=== PATIENT | male | born 1950 | race Caucasian/White ===

== ENCOUNTER → 2018-04-06 | Outpatient (CLI) | payer BC | END | disposition home or self-care (01) | LOC: LABWHC1 09:29 | PROVIDERS: ATTEND Nurse Practitioner Family | DX: R97.20 Elevated prostate specific antigen [PSA] (principal) | CPT/HCPCS: 36415; 84153 ==

== ENCOUNTER 2018-08-01 12:25 | Emergency (ER) | payer BC ==
[2018-08-01] MEDS ORDERED: KETOROLAC 30 MG/ML 1 ML VIAL IVP STA (12:52)
[2018-08-01] MEDS ORDERED: ONDANSETRON 4 MG/2 ML VIAL IVP STA (12:52)
[2018-08-01] MEDS ORDERED: SODIUM CHLORIDE 0.9% 1,000 ML IV STA (12:52)
[2018-08-01] MEDS ORDERED: SODIUM CHLORIDE 0.9% 500 ML 500 ML IV STA (12:52)
[2018-08-01 13:33] LABS: Basophils % (A) 0 %; Eosinophils # (A) 0.1 k/uL (0-0.7); Eosinophils % (A) 1 %; HCT 45.8 % (39.0-53.0); HGB 15.8 gm/dL (13.0-17.5); Lymphocytes # (A) 1.9 k/uL (1.0-4.8); Lymphocytes % (A) 20 %; MCH 30.6 pg (25.0-35.0); MCHC 34.6 g/dL (31.0-37.0); MCV 88.5 fL (80.0-100.0); Mean Platelet Volume 7.2; Monocytes # (A) 0.7 k/uL (0-1.0); Monocytes % (A) 8 %; Neutrophils # (A) 6.9 k/uL (1.3-7.7); Neutrophils % (A) 70 %; Platelet Count 237 k/uL (150-450); RBC 5.17 m/uL (4.30-5.90); RDW 14.2 % (11.5-15.5); WBC 9.8 k/uL (3.8-10.6)
[2018-08-01 13:35] LABS: Albumin 4.5 g/dL (3.5-5.0); Calcium 9.7 mg/dL (8.4-10.2); Potassium 4.1 mmol/L (3.5-5.1); Total Bilirubin 0.7 mg/dL (0.2-1.3); Total Protein 7.3 g/dL (6.3-8.2)
--- NOTE | 2018-08-01 13:48 | XR ---
EXAMINATION TYPE: XR KUB DATE OF EXAM: 08/01/2018 COMPARISON: 08/28/2012 HISTORY: Right flank pain TECHNIQUE: One view abdominal series FINDINGS: The osseous structures are intact. The bowel gas pattern is nonspecific. Hypertrophic and degenerati ve changes spine. Arthropathy of the hips. Chronic deformity of the left iliac bone. Arthropathy of t he hips with hypertrophic change of the acetabulum can be associated with femoral acetabular impingem ent. IMPRESSION: 1. Nonspecific abdomen. No definitive renal calculi, however, the right upper quadrant is limited by overlying bowel content.
--- NOTE | 2018-08-01 14:11 | ED ---
Abdominal Pain HPI - General Chief Complaint: Abdominal Pain Stated Complaint: Kidney stone Time Seen by Provider: 08/01/18 12:46 Source: patient, RN notes reviewed Mode of arrival: ambulatory Limitations: no limitations - History of Present Illness Initial Comments: 67-year-old male presents emergency Department with chief complaint of flank pain. Patient states this started earlier this morning and has worsened. Patient does have a long history kidney stones and states it feels exactly the same. He has admitted nausea vomiting denies chest pain shortness breath no diarrhea no constipation. Patient has urinary frequency and dark urine. Patie nt states she's had lithotripsy in the past. Patient states the pain is not improved by anything or worsened by anything at this time. - Related Data Previous Rx's Medication Instructions Recorded Ketorolac [Toradol] 10 mg PO Q8HR #15 tab 08/01/18 Ondansetron Odt [Zofran Odt] 4 mg PO Q8HR PRN #10 tab 08/01/18 Tamsulosin [Flomax] 0.4 mg PO DAILY #7 cap 08/01/18 Allergies Allergy/AdvReac Type Severity Reaction Status Date / Time No Known Allergies Allergy Verified 08/01/18 12:44 Review of Systems ROS Statement: Those systems with pertinent positive or pertinent negative responses have been documented in the HPI. ROS Other: All systems not noted in ROS Statement are negative. Past Medical History Past Medical History: Hypertension Additional Past Medical History / Comment(s): kidney stones History of Any Multi-Drug Resistant Organisms: None Reported Past Surgical History: Orthopedic Surgery Additional Past Surgical History / Comment(s): lithotripsy Past Psychological History: No Psychological Hx Reported Smoking Status: Never smoker Past Alcohol Use History: None Reported Past Drug Use History: None Reported General Exam Limitations: no limitations General appearance: alert, in no apparent distress Head exam: Present: atraumatic, normocephalic, normal inspection Eye exam: Present: normal appearance, PERRL, EOMI. Absent: scleral icterus, conjunctival injection, periorbital swelling ENT exam: Present: normal exam, normal oropharynx, mucous membranes moist Neck exam: Present: normal inspection. Absent: tenderness, meningismus, lymphadenopathy Respiratory exam: Present: normal lung sounds bilaterally. Absent: respiratory distress, wheezes, rales, rhonchi, stridor Cardiovascular Exam: Present: regular rate, normal rhythm, normal heart sounds. Absent: systolic murmur, diastolic murmur, rubs, gallop, clicks GI/Abdominal exam: Present: soft, tenderness (Mild left-sided), normal bowel sounds. Absent: distended, guarding, rebound, rigid Back exam: Present: CVA tenderness (L). Absent: CVA tenderness (R) Neurological exam: Present: alert, oriented X3, CN II-XII intact Skin exam: Present: warm, dry, intact, normal color. Absent: rash Course Vital Signs 08/01/18 12:41 Temperature 98.5 F Pulse Rate 88 Respiratory 18 Rate Blood Pressure 149/84 O2 Sat by Pulse 99 Oximetry Medical Decision Making - Medical Decision Making 67 show male presented for left flank pain history kidney stones. Symptoms are consistent with it. Labs are unremarkable KUB shows no acute abnormality. Patient be discharged. Return parameters were discussed - Lab Data Result diagrams: 08/01/18 13:06 08/01/18 13:06 Lab Results 08/01/18 08/01/18 08/01/18 Range/Units 13:06 13:06 13:45 WBC 9.8 (3.8-10.6) k/uL RBC 5.17 (4.30-5.90) m/uL Hgb 15.8 (13.0-17.5) gm/dL Hct 45.8 (39.0-53.0) % MCV 88.5 (80.0-100.0) fL MCH 30.6 (25.0-35.0) pg MCHC 34.6 (31.0-37.0) g/dL RDW 14.2 (11.5-15.5) % Plt Count 237 (150-450) k/uL Neutrophils % 70 % Lymphocytes % 20 % Monocytes % 8 % Eosinophils % 1 % Basophils % 0 % Neutrophils # 6.9 (1.3-7.7) k/uL Lymphocytes # 1.9 (1.0-4.8) k/uL Monocytes # 0.7 (0-1.0) k/uL Eosinophils # 0.1 (0-0.7) k/uL Basophils # 0.0 (0-0.2) k/uL Sodium 140 (137-145) mmol/L Potassium 4.1 (3.5-5.1) mmol/L Chloride 106 (98-107) mmol/L Carbon Dioxide 23 (22-30) mmol/L Anion Gap 11 mmol/L BUN 19 (9-20) mg/dL Creatinine 1.08 (0.66-1.25) mg/dL Est GFR (CKD-EPI)AfAm 82 (>60 ml/min/1.73 sqM) Est GFR (CKD-EPI)NonAf 71 (>60 ml/min/1.73 sqM) Glucose 104 H (74-99) mg/dL Calcium 9.7 (8.4-10.2) mg/dL Total Bilirubin 0.7 (0.2-1.3) mg/dL AST 32 (17-59) U/L ALT 29 (21-72) U/L Alkaline Phosphatase 90 (38-126) U/L Total Protein 7.3 (6.3-8.2) g/dL Albumin 4.5 (3.5-5.0) g/dL Lipase 136 (23-300) U/L Urine Color Yellow Urine Appearance Clear (Clear) Urine pH 8.5 H (5.0-8.0) Ur Specific [place] 1.019 (1.001-1.035) Urine Protein 1+ H (Negative) Urine Glucose (UA) Negative (Negative) Urine Ketones 1+ H (Negative) Urine Blood Negative (Negative) Urine Nitrite Negative (Negative) Urine Bilirubin Negative (Negative) Urine Urobilinogen <2.0 (<2.0) mg/dL Ur Leukocyte Esterase Negative (Negative) Urine WBC 4 (0-5) /hpf Calcium Oxalate Crystal Rare H (None) /hpf Urine Mucus Rare H (None) /hpf Disposition Clinical Impression: Kidney stone Disposition: HOME SELF-CARE Condition: Stable Instructions (If sedation given, give patient instructions): Kidney Stones (ED) Additional Instructions: Please return to the Emergency Department if symptoms worsen or any other conc erns. Prescriptions: Tamsulosin [Flomax] 0.4 mg PO DAILY #7 cap Ketorolac [Toradol] 10 mg PO Q8HR #15 tab Ondansetron Odt [Zofran Odt] 4 mg PO Q8HR PRN #10 tab PRN Reason: Nausea Is patient prescribed a controlled substance at d/c from ED?: No Referrals: Kraig Abad DO [Primary Care Provider] - 1-2 days Richard Arriaga MD [STAFF PHYSICIAN] - 1-2 days Time of Disposition: 14:47
[2018-08-01 14:14] LABS: Appearance,Urine Clear (Clear); Bilirubin,Urine Negative (Negative); Blood,Urine Negative (Negative); Calcium Oxalate Crystals,Urine Rare /hpf; Color,Urine Yellow; Glucose,Urine (UA) Negative (Negative); Ketones,Urine 1+ (Negative); Leukocyte Esterase,Urine Negative (Negative); Mucus,Urine Rare /hpf; Nitrite,Urine Negative (Negative); PH, Urine 8.5 (5.0-8.0); Protein,Urine 1+ (Negative); Specific Gravity,Urine 1.019 (1.001-1.035); Urobilinogen,Urine <2.0 mg/dL (<2.0); WBC,Urine 4 /hpf (0-5)
[2018-08-01] MEDS ORDERED: HYDROcodone/APAP 5-325MG 1 EACH TAB PO STA (14:47)
[2018-08-01] MEDS ORDERED: ACET/COD 300 MG/30 MG STARTER PACK 6 TAB BTL PO STA (14:47)
[2018-08-01 15:10] VITALS: BP 138/70; PULSE 78; RESP 16; TEMP 98
== END 2018-08-01 15:09 | disposition home or self-care (01) ==
LOC: EC 12:25
DX: N20.0 Calculus of kidney (principal)
CPT/HCPCS: 36415; 80053; 83690; 85025; 81001; 74018; 99284; 96374; 96375; 96361 ×2; J2405; J1885

== ENCOUNTER → 2018-08-12 | Outpatient (CLI) | payer BC ==
--- NOTE | 2018-08-12 11:20 | CT ---
EXAMINATION TYPE: CT abdomen pelvis wo con DATE OF EXAM: 08/12/2018 HISTORY: Right sided pain for [address] DLP: 1030 mGycm. Automated Exposure Control for Dose Reduction was Utilized. TECHNIQUE: CT scan of the abdomen and pelvis is performed without oral or IV contrast. COMPARISON: CT abdomen and pelvis August 28, 2012 FINDINGS: Within the limitations of a non-contrast study, the following observations are made. LUNG BASES: There are scattered small nodules in the right lung base redemonstrated without significa nt interval change. Slightly elevated right hemidiaphragm remains present LIVER/GB: There are few small scattered simple-appearing thin-walled cysts throughout the liver redem onstrated. PANCREAS: No significant abnormality is seen. SPLEEN: No significant abnormality is seen. ADRENALS: Slight low dense thickening to left adrenal gland is stable favoring benign lipid rich hype rplasia. KIDNEYS: Left kidney shows 2-3 scattered small calculi measuring up to 3 mm in size axial image 71. N o hydronephrosis or obstructing ureter calculi clearly seen. Right kidney shows 2 calculi lower pole level coronal image 62 measuring up to 5 mm in size. There is simple appearing exophytic 6 cm cyst la terally mid to lower pole level coronal image 62 redemonstrated. There is new mild to moderate hydron ephrosis and proximal hydroureter secondary to obstructing 7 mm calculus proximal right ureter mayes l image 53 and axial image 79. Ureter is not dilated distal to this. No intraluminal calculi are seen in bladder. BOWEL: Some diverticula are scattered throughout the colon most prominent in the sigmoid colon. No CT evidence for acute diverticulitis. CT is in the anterior midline of the upper pelvis slightly wander ing and fecal filled axial image 112 terminal ileum is seen cranial aspect coronal image 39. Appendix felt within normal limits axial image 99 and is air-filled. GENITAL ORGANS: Prostate gland is heterogeneous and enlarged in size consistent with BPH. Seminal ves icles are slightly bulky. Pelvic phleboliths are noted bilaterally LYMPH NODES: No greater than 1cm abdominal or pelvic lymph nodes are appreciated. OSSEOUS STRUCTURES: Moderate multilevel spurring in the lower thoracic spine right aspect. Mild to mo derate disc space narrowing with vacuum disc phenomenon L4-L5 level. Mild to moderate disc space narr owing with moderate anterior spurring L2-L3 level. OTHER: No significant additional abnormality is seen. IMPRESSION: Bilateral nephrolithiasis with obstructing 7 mm calculus proximal right ureter causing mi [id number] right-sided hydronephrosis. A Yellow level critical message alert has been initiated for Fernando Lowe MD via the [employer] Critical Results System on 08/12/2018 11:17 AM. This message alert has been sent to Fernando Lowe MD via the preferences provided by the clinician for the receipt of Radiology Critical Findings. Mess age ID [id number].
== END | disposition home or self-care (01) ==
LOC: RADCTMAIN 10:43
PROVIDERS: ATTEND Urology
DX: N13.2 Hydronephrosis with renal and ureteral calculous obstruction (principal)
CPT/HCPCS: 74176

== ENCOUNTER → 2018-08-14 | Outpatient (CLI) | payer BC ==
[2018-08-14 14:12] LABS: Basophils % (A) 1 %; Eosinophils # (A) 0.1 k/uL (0-0.7); Eosinophils % (A) 2 %; HCT 40.6 % (39.0-53.0); HGB 13.2 gm/dL (13.0-17.5); Lymphocytes # (A) 1.5 k/uL (1.0-4.8); Lymphocytes % (A) 27 %; MCH 30.3 pg (25.0-35.0); MCHC 32.5 g/dL (31.0-37.0); MCV 93.1 fL (80.0-100.0); Mean Platelet Volume 6.8; Monocytes # (A) 0.3 k/uL (0-1.0); Monocytes % (A) 6 %; Neutrophils # (A) 3.5 k/uL (1.3-7.7); Neutrophils % (A) 63 %; Platelet Count 253 k/uL (150-450); RBC 4.36 m/uL (4.30-5.90); RDW 13.9 % (11.5-15.5); WBC 5.5 k/uL (3.8-10.6)
[2018-08-14 14:39] LABS: Calcium 9.2 mg/dL (8.4-10.2); Potassium 4.1 mmol/L (3.5-5.1)
== END | disposition home or self-care (01) ==
LOC: LABPAT 13:38
PROVIDERS: ATTEND Urology
DX: Z01.812 Encounter for preprocedural laboratory examination (principal); Z01.818 Encounter for other preprocedural examination; I10 Essential (primary) hypertension; N20.1 Calculus of ureter; N20.0 Calculus of kidney
CPT/HCPCS: 36415; 80048; 85025

== ENCOUNTER 2018-08-22 06:04 | Day surgery (SDC) | payer BC ==
--- NOTE | 2018-08-14 18:14 | P.GSHP ---
History of Present Illness H&P Date: 08/14/18 Chief Complaint: Right flank pain The patient is a 67-year-old white male with a history of recurrent calcium oxalate urolithiasis. He has previously undergone ESWL. He underwent a recent 24-hour urine study to determine the cause of his recurrent urolithiasis. He has recently experienced right flank pain, and a computed tomography scan shows an 8 mm right proximal ureteral calculus as well as bilateral renal calculi. Alternative treatment options have been reviewed. The calculi were not seen on a plain radiograph. He has elected to undergo ureteroscopy with laser lithotripsy and comes for this reason. - Constitutional Constitutional: Reports chills - Gastrointestinal Gastrointestinal: Reports nausea - Genitourinary (Female) Genitourinary: Reports flank pain, Reports hematuria, Reports kidney stones Past Medical History Past Medical History: Hypertension Additional Past Medical History / Comment(s): kidney stones History of Any Multi-Drug Resistant Organisms: None Reported Past Surgical History: Orthopedic Surgery Additional Past Surgical History / Comment(s): lithotripsy Past Psychological History: No Psychological Hx Reported Smoking Status: Never smoker Past Alcohol Use History: None Reported Past Drug Use History: None Reported Medications and Allergies Home Medications Medication Instructions Recorded Confirmed Type Ketorolac [Toradol] 10 mg PO Q8HR #15 tab 08/01/18 Rx Ondansetron Odt [Zofran Odt] 4 mg PO Q8HR PRN #10 tab 08/01/18 Rx Tamsulosin [Flomax] 0.4 mg PO DAILY #7 cap 08/01/18 Rx Allergies Allergy/AdvReac Type Severity Reaction Status Date / Time No Known Allergies Allergy Verified 08/01/18 12:44 Surgical - Exam - General well developed, well nourished, no distress - Neck no masses, trachea midline - Respiratory normal respiratory effort, clear to auscultation - Cardiovascular Rhythm: regular Abnormal Heart Sounds: no systolic murmur, no diastolic murmur, no rub, no S3 Gallop, no S4 Gallop, no click, no other - Abdomen Abdomen: soft, non tender, no guarding, no rigid, no rebound - Psychiatric oriented to time, oriented to person, oriented to place, speech is normal, memory intact Assessment and Plan (1) Calculus of ureter Status: Acute Code(s): N20.1 - CALCULUS OF URETER SNOMED Code(s): 35146761 (2) Calculus of kidney Status: Acute Code(s): N20.0 - CALCULUS OF KIDNEY SNOMED Code(s): 21312967 Plan: Cystoscopy, right retrograde pyelogram, right ureteroscopy with Holmium laser lithotripsy, right ureteral stent insertion. The procedure has been reviewed in detail with the patient. Potential risks include anesthesia, bleeding, infection, and ureteral injury. The patient is aware of the possible need for a secondary procedure.
[2018-08-19 10:33] VITALS: BMI 27.7
[~2018-08-22 06:04] MED LIST: LIDOCAINE 1% 20 ML VIAL (10MG/ML) FOR IV START INTRADERMA PRN; METOCLOPRAMIDE 5 MG/ML 2 ML VIAL IVP PRN; ONDANSETRON 4 MG/2 ML VIAL IVP PRN; ceFAZolin IN SWFI 2 GM/20 ML SYRINGE IVP ONE
[2018-08-22] MEDS: LACTATED RINGERS 1,000 ML IV SCH ×2 (06:40→11:07)
--- NOTE | 2018-08-22 07:18 | XR ---
EXAMINATION TYPE: XR KUB DATE OF EXAM: 08/22/2018 6:22 AM CLINICAL HISTORY: Right-sided nephrolithiasis TECHNIQUE: Single supine KUB image of the abdomen is obtained. COMPARISON: CT dated 08/12/2018. FINDINGS: There is a 7 mm right renal calculus within lower pole and punctate 2 mm calculus. These we re both seen on the prior CT of 08/12/2018. The right ureteral calculus previously overlying the L3 tr ansverse processes unchanged. The known left renal calculi are punctate and better defined on CT. No dilated bowel. Degenerative changes of the hips and lumbar spine are moderate. Lung bases are subopti augusta visualized but clear. IMPRESSION: Right ureteral calculus remains unchanged in position overlying the right L3 transverse process in co mparison to the CT dated 08/12/2018. Other bilateral renal calculi are better seen on CT.
[2018-08-22] MEDS ORDERED: fentaNYL (PF) 50 MCG/ML 2 ML AMP ONE (07:24)
[2018-08-22] MEDS ORDERED: PROPOFOL 10 MG/ML 20 ML VIAL IV ONE (07:24)
[2018-08-22] MEDS ORDERED: LIDOCAINE 1% INJ 10MG/ML (20 ML MDV) ONE (07:24)
[2018-08-22] MEDS ORDERED: MIDAZOLAM 2 MG/2 ML VIAL ONE (07:24)
[2018-08-22] MEDS ORDERED: PHENYLEPHRINE-0.9% NACL SYG 1 MG/10 ML SYRINGE ONE (07:24)
[2018-08-22] MEDS ORDERED: LACTATED RINGERS 1,000 ML IV ONE (08:12)
[2018-08-22 09:12] VITALS: TEMP 97
[2018-08-22 09:32] VITALS: RESP 16
--- NOTE | 2018-08-22 09:41 | P.OP ---
Date of Procedure: 08/22/18 Preoperative Diagnosis: Right ureteral calculus, right renal calculi Postoperative Diagnosis: Same Procedure(s) Performed: Cystoscopy, right ureteroscopy with Holmium laser lithotripsy, right ureteral stent insertion Anesthesia: LIANE Surgeon: Fernando Lowe Estimated Blood Loss (ml): 5 IV fluids (ml): 900 Pathology: none sent Condition: stable Disposition: PACU Indications for Procedure: The patient is a 67-year-old white male with a history of recurrent calcium oxalate urolithiasis. He has previously undergone ESWL. He underwent a recent 24-hour urine study to determine the cause of his recurrent urolithiasis. He has recently experienced right flank pain, and a computed tomography scan shows an 8 mm right proximal ureteral calculus as well as bilateral renal calculi. Alternative treatment options have been reviewed. The calculi were not seen on a plain radiograph. He has elected to undergo ureteroscopy with laser lithotripsy and comes for this reason. Operative Findings: Right proximal ureteral calculus and several right renal calculi, all fragmented completely. Description of Procedure: The patient was taken to the operating room and placed in the dorsolithotomy position, with legs supported in Villa stirrups. The external genitalia was prepped and draped sterilely. The 30 lens was used to introduce the 19-Danish Stortz cystoscopic sheath through the urethra and into the bladder under direct vision. The prostatic urethra showed evidence of mild lateral lobe enlargement. The bladder was examined in its entirety. Both ureteral orifices were normal anatomic location and configuration, and clear urine effluxed from both. No tumors or foreign bodies were seen. A 0.038 inch Glidewire was passed through the cystoscope. The right ureteral orifice was cannulated, and the Glidewire was advanced up to the right renal pelvis. The cystoscope was removed, and an 11/13-Danish ureteral access catheter was passed over the wire, up to the proximal ureter. The mini flexible ureteroscope was passed through the ureteral access catheter sheath, then advanced under direct vision up to the calculus. The 200 micron Holmium laser probe was passed through the ureteroscope, and lithotripsy was performed. The calculus was not very dense, likely composed of calcium oxalate dihydrate. After fragmenting the ureteral calculus, the ureteroscope was advanced up to the kidney. Cloudy urine was aspirated to improve visualization. Small calculi were seen within upper pole and midpole calyces, and these were fragmented. The larger calculus was identified within a lower pole calyx, and this also was fragmented. Fragmentation was continued until there were no residual calculus fragments exceeding 1-2 mm in size. The ureteroscope was removed under direct vision. There was no evidence of ureteral trauma. The Glidewire was passed through the ureteral access catheter sheath, which was then removed. The Glidewire was backloaded into the cystoscope, which was advanced into the bladder. A 28 cm, 4.8-Danish double-J ureteral stent was placed over the wire. Proper stent positioning was verified fluoroscopically and endoscopically. The bladder was emptied and the cystoscope removed. The patient tolerated the procedure well and was taken to the recovery room in stable condition. [facility] Report: Procedure Acuity: Elective Stone Size and Location: 8 mm, right proximal ureter Ureteral Dilation: No Ureteral Access Sheath Used: Yes Stone Sent for Analysis: No All Stones/Fragments Were Removed with a Basket: No Complications: No Preoperative Antibiotics Given: Yes Stent Placed: Yes If Stent Placed, Was String Left Attached: No If Stent Placed, When is it to be Removed: 1 week Discharge Medications: [place], Detrol [place]
[2018-08-22] MEDS: HYDROmorphone 0.5 MG/0.5 ML SYRINGE IVP PRN ×2 (09:48→09:52)
[2018-08-22] MEDS ORDERED: HYDROcodone/APAP 5-325MG 1 EACH TAB PO ONE (10:19)
[2018-08-22 10:39] VITALS: PULSE 65
[2018-08-22 10:53] VITALS: BP 135/78
--- NOTE | 2018-08-22 15:46 | FL ---
Fluoroscopy HISTORY: Kidney stones, lithotripsy 37 seconds fluoroscopy time supplied to the referring clinician. 2 intraoperative C-arm images docum ent the procedure. See dictated report from urology.
== END 2018-08-22 11:17 | disposition home or self-care (01) ==
LOC: OR 06:04
PROVIDERS: ATTEND Urology
DX: N20.2 Calculus of kidney with calculus of ureter (principal); I10 Essential (primary) hypertension; Z87.442 Personal history of urinary calculi; Z79.1 Long term (current) use of non-steroidal anti-inflammatories (NSAID); Z79.899 Other long term (current) drug therapy
CPT/HCPCS: 74018; 52356; C2625; C1769 ×2; C1758; J2250; J2405; J2001; J3010; J2370; J2704; J1170; J0690

== ENCOUNTER → 2018-09-13 | Outpatient (CLI) | payer BC | LOC: LABWHC1 07:50 | PROVIDERS: ATTEND Urology | DX: R97.20 Elevated prostate specific antigen [PSA] (principal) | CPT/HCPCS: 36415; 84153 ==

== ENCOUNTER → 2018-10-08 | Outpatient (CLI) | payer BC ==
--- NOTE | 2018-10-08 11:46 | US ---
EXAMINATION TYPE: US kidneys/renal and bladder DATE OF EXAM: 10/08/2018 COMPARISON: NONE CLINICAL HISTORY: N20.1 Calculus of ureter,N20.0 Calculus or Kidney. Hx renal stones. No pain at thi s time. Stone removal x 4 weeks ago EXAM MEASUREMENTS: Right Kidney: 12.4 x 5.9 x 6.1 cm Left Kidney: 11.9 x 4.8 x 6.0 cm Right Kidney: medial lower pole exophytic cystic appearing lesion seen = 5.8 x 5.0 x 4.2 cm. Promine nt echogenic focus seen, nonshadowing = 0.4 x 0.4 cm Left Kidney: Nonshadowing echogenic focus seen in lower pole = 0.9 x 0.6 cm Bladder: Nondistended, not well visualized Bilateral Jets not seen There is no evidence for hydronephrosis at this point in time. Remainder bladder is nondistended. IMPRESSION: 1. Bilateral nonobstructive renal calculi measuring 9 mm on the left and 4 mm on the right. 2. Exophytic 5.8 cm cortical cyst on the right.
--- NOTE | 2018-10-08 15:08 | XR ---
KUB HISTORY: Kidney stones Frontal KUB correlated to prior exam 08/22/2018 The lung bases are clear. There is a scoliotic curvature to the spine, degenerative disc changes are present. No evident bowel obstruction or pneumoperitoneum. Overlying bowel gas may obscure underlying detail. Previously identified calcification overlying the right L3 transverse process is no longer s een. IMPRESSION: Nonobstructive bowel gas pattern
== END | disposition home or self-care (01) ==
LOC: RADUSWWP 10:44
PROVIDERS: ATTEND Urology
DX: N20.2 Calculus of kidney with calculus of ureter (principal); N28.1 Cyst of kidney, acquired; R14.3 Flatulence
CPT/HCPCS: 74018; 76770

== ENCOUNTER 2018-12-31 08:47 | Emergency (ER) | payer BC, MEDICARE ==
[2018-12-31 09:03] VITALS: TEMP 98.1
[2018-12-31] MEDS ORDERED: TOPICAL SKIN ADHESIVE 1 EACH AMP TOPICAL ONE (09:12)
--- NOTE | 2018-12-31 09:14 | ED ---
General Adult HPI - General Chief complaint: Wound/Laceration Stated complaint: fall/head lac Time Seen by Provider: 12/31/18 08:56 Source: patient, RN notes reviewed Mode of arrival: ambulatory Limitations: no limitations - History of Present Illness Initial comments: Patient is a pleasant 68-year-old male presenting to the emergency Department with concerns regarding head laceration. Patient states he tripped and fell. Patient did land on his head. Patient denies any loss of consciousness. Patient was not days. No nausea vomiting. No severe pain. No weakness or confusion. Last tetanus immunization was less than 10 years ago. No visual changes. Patient only has concern regarding laceration of the left forehead. No neck pain. Patient confirms he is not on blood thinners. - Related Data Home Medications Medication Instructions Recorded Confirmed Diltiazem HCl [Cartia Xt] 180 mg PO HS 08/19/18 08/22/18 amLODIPine BESYLATE [Norvasc] 5 mg PO HS 08/19/18 08/22/18 Previous Rx's Medication Instructions Recorded Hydrocodone/Acetaminophen [[place] 1 - 2 each PO Q4HR PRN #6 tab 08/22/18 5-325] Tolterodine ER [Detrol [place]] 4 mg PO DAILY #10 cap.er.24h 08/22/18 Allergies Allergy/AdvReac Type Severity Reaction Status Date / Time No Known Allergies Allergy Verified 12/31/18 09:03 Review of Systems ROS Statement: Those systems with pertinent positive or pertinent negative responses have been documented in the HPI. ROS Other: All systems not noted in ROS Statement are negative. Constitutional: Denies: fever Eyes: Denies: eye pain ENT: Denies: ear pain Respiratory: Denies: cough, dyspnea Cardiovascular: Denies: chest pain Endocrine: Denies: fatigue Gastrointestinal: Denies: abdominal pain Genitourinary: Denies: dysuria Musculoskeletal: Denies: back pain Skin: Reports: as per HPI Neurological: Denies: headache, weakness, confusion Past Medical History Past Medical History: Hypertension Additional Past Medical History / Comment(s): kidney stones History of Any Multi-Drug Resistant Organisms: None Reported Past Surgical History: Orthopedic Surgery Additional Past Surgical History / Comment(s): lithotripsy Past Psychological History: No Psychological Hx Reported Smoking Status: Never smoker Past Alcohol Use History: Occasional Past Drug Use History: None Reported General Exam Limitations: no limitations General appearance: alert, in no apparent distress Head exam: Present: other (Laceration left forehead) Eye exam: Present: normal appearance, PERRL, EOMI ENT exam: Present: normal oropharynx Neck exam: Present: normal inspection. Absent: tenderness Respiratory exam: Present: normal lung sounds bilaterally Cardiovascular Exam: Present: regular rate, normal rhythm GI/Abdominal exam: Present: soft. Absent: tenderness Extremities exam: Present: normal inspection, full ROM. Absent: tenderness Neurological exam: Present: alert, oriented X3, CN II-XII intact. Absent: motor sensory deficit Expanded Neurological exam: Present: protecting the airway Patient oriented to: Present: person, place, time Speech: Present: fluid speech Motor strength exam: RUE: 5, LUE: 5, RLE: 5, LLE: 5 Eye Response: (4) open spontaneously Motor Response: (6) obeys commands Verbal Response: (5) oriented Psychiatric exam: Present: normal affect, normal mood Skin exam: Present: other (Left forehead laceration) Course Vital Signs 12/31/18 09:00 Temperature 98.1 F Pulse Rate 107 H Respiratory 18 Rate Blood Pressure 157/80 O2 Sat by Pulse 96 Oximetry Procedures - Laceration Laceration #1 Consent Obtained: verbal consent Indication: laceration Site: face (Left forehead) Size (cm): 3 Description: linear Depth: simple, single layer Pre-repair: irrigated extensively Type of Sutures: other (Closed with exofin) Patient Tolerated Procedure: well, no complications Disposition Clinical Impression: Laceration Disposition: HOME SELF-CARE Condition: Stable Instructions (If sedation given, give patient instructions): Laceration (ED), Head Injury (ED), Skin Adhesive Care (ED) Additional Instructions: Please follow-up with primary care physician in the next couple days for recheck. [id number] Tylenol if needed. Return for increased pain, confusion, weakness, worsening symptoms or other concerns. Is patient prescribed a controlled substance at d/c from ED?: No Referrals: Kraig Abad DO [Primary Care Provider] - 1-2 days Time of Disposition: 09:55
[2018-12-31 10:01] VITALS: BP 160/80; PULSE 95; RESP 16
== END 2018-12-31 09:59 | disposition home or self-care (01) ==
LOC: EC 08:47
DX: S01.81XA Laceration without foreign body of other part of head, initial encounter (principal); I10 Essential (primary) hypertension; W01.0XXA Fall on same level from slipping, tripping and stumbling without subsequent striking against object, initial encounter
CPT/HCPCS: 12013; 99283

== ENCOUNTER → 2019-10-01 | Outpatient (CLI) | payer BC ==
--- NOTE | 2019-10-01 16:29 | XR ---
EXAMINATION TYPE: XR KUB DATE OF EXAM: 10/01/2019 8:45 AM CLINICAL HISTORY: Calculus of kidney TECHNIQUE: Supine images of the abdomen and pelvis were obtained COMPARISON: None. FINDINGS: Punctate density over the left renal lower pole shadow may represent nephrolithiasis versus overlying fecal content. Bowel gas pattern is nonspecific. There is no visceromegaly. Pelvic phlebol iths. Degenerative changes of the spine. IMPRESSION: 1. Punctate density over the left renal lower pole may represent tiny nephrolithiasis versus overlap ping fecal debris. 2. Nonspecific bowel gas pattern.
== END | disposition home or self-care (01) ==
LOC: LABWHC1 08:26
PROVIDERS: ATTEND Urology
DX: R97.20 Elevated prostate specific antigen [PSA] (principal); N20.0 Calculus of kidney
CPT/HCPCS: 36415; 74018; 84153

== ENCOUNTER → 2020-03-26 | Outpatient (CLI) | payer BC | END | disposition home or self-care (01) | LOC: LABWHC1 09:07 | PROVIDERS: ATTEND Urology | DX: R97.20 Elevated prostate specific antigen [PSA] (principal) | CPT/HCPCS: 36415; 84153 ==

== ENCOUNTER → 2020-09-23 | Outpatient (CLI) | payer BC ==
--- NOTE | 2020-09-23 13:56 | XR ---
EXAMINATION TYPE: XR ribs RT DATE OF EXAM: 09/23/2020 COMPARISON: NONE HISTORY: Pain TECHNIQUE: 4 views submitted FINDINGS: There is a slight subtle deformity involving the lateral margins of the right sixth and sev enth ribs. There are displaced fractures involving the right posterior lateral seventh through 10th r ibs. Subsegmental changes at the right lung base. No evidence of pneumothorax. Arthropathy of the rosa isela ulders. Hypertrophic and degenerative changes of the spine. IMPRESSION: 1. Multiple displaced fractures involving the right sixth through 11th ribs as discussed above. 2. Right basilar atelectasis or infiltrate.
--- NOTE | 2020-09-23 13:57 | XR ---
EXAMINATION TYPE: XR ankle complete RT DATE OF EXAM: 09/23/2020 COMPARISON: NONE HISTORY: Pain FINDINGS: Three views of the ankle demonstrate the ankle mortise to be intact and symmetric. The joint spaces are preserved. The osseous structures are intact. Multiple well-corticated ossific densities are se en adjacent to the medial and lateral malleolus likely in the basis of previous trauma. Chronic defor mity involving the superior margin of the calcaneus with the moderate size calcaneal spurs also noted . Pes planus deformity noted and there is vascular calcifications. IMPRESSION: 1. Large calcaneal spurs with chronic appearing deformity of the posterior superior margin of the alfonso caneus possibly on the basis of prior trauma. 2. Pes planus deformity.
--- NOTE | 2020-09-23 13:59 | XR ---
EXAMINATION TYPE: XR foot complete RT DATE OF EXAM: 09/23/2020 COMPARISON: NONE HISTORY: Pain TECHNIQUE: Three views are submitted. FINDINGS: The osseous structures are intact. There is no acute fracture or dislocation. Soft tissue ossifica tion noted near the ball of foot. Along the plantar surface. Vascular calcifications are noted. There is arthropathy can hypertrophic changes involving the tarsal bones. Calcaneal spurs are noted and th ere is a chronic appearing deformity of the superior margin the calcaneus possibly related to prior t rauma. Arthropathy of the first MTP and first DIP. Arthropathy first tarsal metatarsal junction. Arth ropathy of the fifth PIP joint. IMPRESSION: 1. No acute fracture or dislocation. If symptoms persist, follow-up exam in 7 to 10 days could be ob tained. 2. Chronic appearing hypertrophic changes as discussed above.
== END | disposition home or self-care (01) ==
LOC: RADXRMAIN 13:15
PROVIDERS: ATTEND Physician Assistant
DX: S22.41XA Multiple fractures of ribs, right side, initial encounter for closed fracture (principal); M77.31 Calcaneal spur, right foot

== ENCOUNTER → 2021-03-29 | Outpatient (CLI) | payer MEDICARE ==
--- NOTE | 2021-03-29 15:01 | XR ---
KUB HISTORY: N 20.0 Frontal KUB on 2 images correlated prior KUB 10/01/2019 Oh gas may obscure underlying detail. There is an oval calcification present at the L4 transverse pro cess level on the right measuring approximately 4 x 10 mm. There is a mild spinal curvature. Degenera tive disc changes are noted. Multiple calcifications are present within the pelvis. Arthropathy noted within the hips. IMPRESSION: Findings may represent a mid ureteral calculus on the right as described.
== END | disposition home or self-care (01) ==
LOC: RADXRMAIN 13:52
PROVIDERS: ATTEND Urology
DX: N20.0 Calculus of kidney (principal); R97.20 Elevated prostate specific antigen [PSA]
CPT/HCPCS: 74018; 84153

== ENCOUNTER → 2021-04-14 | Outpatient (CLI) | payer MEDICARE ==
[2021-04-14 10:12] LABS: Appearance,Urine Clear (Clear); Bilirubin,Urine Negative (Negative); Blood,Urine Large (Negative); Color,Urine Yellow; Glucose,Urine (UA) Negative (Negative); Ketones,Urine Negative (Negative); Leukocyte Esterase,Urine Negative (Negative); Mucus,Urine Rare /hpf; Nitrite,Urine Negative (Negative); PH, Urine 6.5 (5.0-8.0); Protein,Urine Trace (Negative); RBC,Urine >182 /hpf (0-5); Specific Gravity,Urine 1.019 (1.001-1.035); Urobilinogen,Urine <2.0 mg/dL (<2.0); WBC,Urine 7 /hpf (0-5)
[2021-04-14 15:41] LABS: Basophils # (A) 0.04 X 10*3/uL (0.00-0.10); Basophils % (A) 0.6 %; Eosinophils # (A) 0.35 X 10*3/uL (0.04-0.35); HCT 46.1 % (39.6-50.0); HGB 15.2 g/dL (13.0-17.0); Immature Grans, Automated 0.4 %; Lymphocytes # (A) 2.16 X 10*3/uL (0.90-5.00); Lymphocytes % (A) 30.7 %; MCH 30.6 pg (27.0-32.0); MCV 92.8 fL (80.0-97.0); Mean Platelet Volume 10.2 fL (9.5-12.2); Monocytes # (A) 0.55 X 10*3/uL (0.20-1.00); Monocytes % (A) 7.8 %; NRBC Per 100 WBC 0 /100 WBCS (0.0-0.0); Neutrophils # (A) 3.91 X 10*3/uL (1.80-7.70); Neutrophils % (A) 55.5 %; Platelet Count 190 X 10*3/uL (140-440); RBC 4.97 X 10*6/uL (4.40-5.60); RDW 13.2 % (11.5-14.5); WBC 7.04 X 10*3/uL (4.50-10.00)
[2021-04-14 16:30] LABS: ALT 27 U/L (10-49); AST 36 U/L (14-35); African American GFR (CKD) 88.6 (60.0-200.0); Albumin 4.4 g/dL (3.8-4.9); Alkaline Phosphatase 89 U/L (41-126); Blood Urea Nitrogen 15.3 mg/dL (9.0-27.0); Calcium 8.9 mg/dL (8.7-10.3); Carbon Dioxide 25.2 mmol/L (20.0-27.5); Chloride 106 mmol/L (96-109); Chol/HDL Ratio 3.76 Ratio; Globulin 2.2 g/dL (1.6-3.3); Glucose 96 mg/dL (70-110); LDL Cholesterol,Calculated 92.7 mg/dL (0.0-131.0); Non-African American GFR(CKD) 76.5 (60.0-200.0); Potassium 4.3 mmol/L (3.5-5.5); Sodium 143 mmol/L (135-145); Total Protein 6.6 g/dL (6.2-8.2); VLDL Calculation 16.72 mg/dL (5.00-40.00)
== END | disposition home or self-care (01) ==
LOC: LABWHC1 08:07
PROVIDERS: ATTEND Family Medicine
DX: Z00.00 Encounter for general adult medical examination without abnormal findings (principal); I10 Essential (primary) hypertension; N40.0 Benign prostatic hyperplasia without lower urinary tract symptoms; G82.20 Paraplegia, unspecified
CPT/HCPCS: 36415; 80053; 80061; 81001; 85025

== ENCOUNTER → 2021-04-21 | Outpatient (CLI) | payer MEDICARE ==
--- NOTE | 2021-04-21 14:44 | XR ---
KUB HISTORY: Calculus of right ureter Frontal KUB on 2 images correlated to prior exam 03/29/2021, CT 08/12/2018 Multiple calcifications are seen within the pelvis similar to prior exams and consistent with vascula r calcifications. Osteoarthritic changes are suspected within the hips, correlate for possible femora l acetabular impingement. Degenerative disc changes present visualized spine. Retained fecal debris m ay obscure underlying detail. There is a spinal curvature. Difficult to exclude underlying nephrolith iasis. Lung bases are clear. IMPRESSION: The previously identified right ureteral calculus is not seen definitively on today's exa m
== END | disposition home or self-care (01) ==
LOC: RADXRMAIN 14:20
PROVIDERS: ATTEND Urology
DX: N20.1 Calculus of ureter (principal)
CPT/HCPCS: 74018

== ENCOUNTER → 2021-05-06 | Outpatient (CLI) | payer MEDICARE ==
--- NOTE | 2021-05-07 12:20 | CT ---
EXAMINATION TYPE: CT abdomen pelvis wo con DATE OF EXAM: 05/06/2021 COMPARISON: 08/12/2018 HISTORY: Mult. renal stones in past, R flank pain x [address] DLP: 677.5 mGycm Automated exposure control for dose reduction was used. TECHNIQUE: Helical acquisition of images was performed from the lung bases through the pelvis. FINDINGS: LUNG BASES: Multiple 5 mm less pulmonary nodules are similar in appearance to the prior exam. Right h emidiaphragm remains elevated. Mild peribronchial wall thickening can be associated bronchiectasis. S ubsegmental atelectasis at both lung bases correlate for COPD. Coronary artery atherosclerotic calcif ications. LIVER/GB: Hypodensities within the liver too small to characterize by noncontrast technique but are s imilar to the prior exam and statistically most likely related to cysts. PANCREAS: No significant abnormality is seen. SPLEEN: No significant abnormality is seen. ADRENALS: No significant abnormality is seen. KIDNEYS: Is a 6 mm mid ureteral calculus near the level of S2 result in moderate right hydronephrosis . Right kidney: There are 2 additional punctate 2 mm calculus. Large 6.8 cm simple right renal cyst bernadette suring 12 Hounsfield units stable. Left kidney: No hydronephrosis. Suspect a single punctate calculus left lower pole measuring 1 mm axi al image 37. ADENOPATHY: None visualized. OSSEOUS STRUCTURES: Hypertrophic and degenerative changes of the spine. Chronic rib deformities sugg est remote trauma. Correlate for arthropathy of the hips. BOWEL: Bowel gas pattern nonspecific with no obstruction. Changes of diverticulosis noted. OTHER: Aorta of normal caliber. Prostate gland is enlarged. Correlate with PSA. Small bilateral fat-c ontaining inguinal hernia. IMPRESSION: 1. Moderate right hydronephrosis with stable 6 mm mid right ureteral calculus. Additional nephrolithi asis as discussed above. 2. Diverticulosis. 3. Stable indeterminate hepatic lesions statistically most likely related to cysts. Correlate clinica lly. 4. Prostate hypertrophy. 5. Stable numerous 5 mm or less pulmonary nodules. 6. Coronary artery calcification.
== END | disposition home or self-care (01) ==
LOC: RADCTMAIN 16:11
PROVIDERS: ATTEND Urology
DX: N13.2 Hydronephrosis with renal and ureteral calculous obstruction (principal); K57.90 Diverticulosis of intestine, part unspecified, without perforation or abscess without bleeding; N40.0 Benign prostatic hyperplasia without lower urinary tract symptoms; R91.8 Other nonspecific abnormal finding of lung field; I25.10 Atherosclerotic heart disease of native coronary artery without angina pectoris
CPT/HCPCS: 74176

== ENCOUNTER → 2021-05-25 | Outpatient (CLI) | payer MEDICARE ==
--- NOTE | 2021-05-25 14:51 | XR ---
KUB HISTORY: Right-sided kidney stones Frontal KUB on 2 images correlated prior KUB 04/21/2021, CT 05/06/2021 Multiple calcifications are noted within the pelvis. There is a new oval calcification seen in the ri ght hemipelvis measuring approximately 1 cm x 5 mm. Degenerative disc changes are again noted in the lower lumbar spine. Arthropathy noted in the hips. There is a mild spinal curvature. Bowel gas may ob scure underlying detail. IMPRESSION: Distal right ureteral calculus. Right-sided nephrolithiasis seen on CT not well seen on p jorge film.
== END | disposition home or self-care (01) ==
LOC: RADXRMAIN 13:32
PROVIDERS: ATTEND Urology
DX: N20.2 Calculus of kidney with calculus of ureter (principal)
CPT/HCPCS: 74018

== ENCOUNTER 2021-06-23 06:50 | Day surgery (SDC) | payer MEDICARE ==
[~2021-06-23 06:50] MED LIST changes: +LACTATED RINGERS 1,000 ML IV SCH; +LIDOCAINE 1% (10MG/ML) FOR IV START INTRADERMA PRN; -LIDOCAINE 1% 20 ML VIAL (10MG/ML) FOR IV START INTRADERMA PRN; -METOCLOPRAMIDE 5 MG/ML 2 ML VIAL IVP PRN; -ONDANSETRON 4 MG/2 ML VIAL IVP PRN; -ceFAZolin IN SWFI 2 GM/20 ML SYRINGE IVP ONE
--- NOTE | 2021-06-23 07:14 | P.GSHP ---
History of Present Illness H&P Date: 06/23/21 CHIEF COMPLAINT: GERD and colon screen HISTORY OF PRESENT ILLNESS: The patient is a 70-year-old male who presents with gastroesophageal reflux disease and need for colon screen. Upper and lower endoscopy were offered for further evaluation and management. PAST MEDICAL HISTORY: Please see list. PAST SURGICAL HISTORY: Please see list. MEDICATIONS: Please see list. ALLERGIES: Please see list. SOCIAL HISTORY: No illicit drug use FAMILY HISTORY: No reports of Crohn disease or ulcerative colitis. REVIEW OF ORGAN SYSTEMS: CONSTITUTIONAL: No reports of fevers or chills. GI: Denies any blood in stools or constipation. PHYSICAL EXAM: VITAL SIGNS: Stable GENERAL: Well-developed pleasant in no acute distress. HEENT: No scleral icterus. Extraocular movements grossly intact. Moist buccal mucosa. NECK: Supple without lymphadenopathy. CHEST: Unlabored respirations. Equal bilateral excursions. CARDIOVASCULAR: Regular rate and rhythm. Distal 2+ pulses. ABDOMEN: Soft, nondistended. MUSCULOSKELETAL: No clubbing, cyanosis, or edema. ASSESSMENT: 1. Gastroesophageal reflux disease 2. Colon screen. PLAN: 1. Recommend proceeding with an upper and lower endoscopy Past Medical History Past Medical History: Hyperlipidemia, Hypertension Additional Past Medical History / Comment(s): kidney stones History of Any Multi-Drug Resistant Organisms: None Reported Past Surgical History: Orthopedic Surgery Additional Past Surgical History / Comment(s): lithotripsy. ORIF AND REMOVAL OF HARDWARE OF RIGHT ANKLE Past Anesthesia/Blood Transfusion Reactions: No Reported Reaction Past Psychological History: No Psychological Hx Reported Smoking Status: Never smoker Past Alcohol Use History: Occasional Past Drug Use History: None Reported Medications and Allergies Home Medications Medication Instructions Recorded Confirmed Type amLODIPine BESYLATE [Norvasc] 10 mg PO HS 08/19/18 06/21/21 History Atorvastatin [Lipitor] 40 mg PO HS 06/21/21 06/21/21 History Allergies Allergy/AdvReac Type Severity Reaction Status Date / Time No Known Allergies Allergy Verified 06/21/21 13:54
[2021-06-23 07:32] VITALS: TEMP 98.4
[2021-06-23] MEDS ORDERED: PROPOFOL 10 MG/ML 20 ML VIAL IV ONE (07:55)
[2021-06-23] MEDS ORDERED: LIDOCAINE 2% INJ 20 MG/ML (2 ML VIAL) ONE (07:55)
--- NOTE | 2021-06-23 08:37 | P.PCN ---
Date of Procedure: 06/23/21 Description of Procedure: PREOPERATIVE DIAGNOSIS: Gastroesophageal reflux disease. POSTOPERATIVE DIAGNOSIS: Gastroesophageal reflux disease. Gastritis. OPERATION: Esophagogastroduodenoscopy with biopsies along antrum and duodenal SURGEON: Felicitas Horn MD ANESTHESIA: MAC. INDICATIONS: The patient is a 70-year-old female who presents with reflux disease. Benefits and risks of the procedure were described. Informed consent was obtained. DESCRIPTION: The patient was brought into the endoscopy suite and laid in the left lateral decubitus position. An Olympus gastroscope was passed along the posterior oropharynx down to the distal esophagus where the squamocolumnar junction was encountered at 42 cm from the incisors. The stomach was entered and no bile reflux was found. Additional findings are listed below. Biopsies with cold forceps were obtained of the antrum. The first through third portion of the duodenum was examined. Retroflexion of the scope confirmed Hill grade 1 lower esophageal valve. The squamocolumnar junction demonstrated LA grade B erosive esophagitis. The stomach was desufflated. The patient tolerated the procedure well. FINDINGS: Squamocolumnar junction 42 cm from the incisors. Diaphragmatic hiatus at 42 cm. Hill grade 1 lower esophageal valve. LA grade B erosive esophagitis. Biopsies obtained of duodenum for duodenitis Chronic gastritis RECOMMENDATIONS: Upper endoscopy as needed.
[2021-06-23 08:38] VITALS: RESP 16
--- NOTE | 2021-06-23 08:40 | P.PCN ---
Date of Procedure: 06/23/21 Description of Procedure: PREOPERATIVE DIAGNOSIS: Colonoscopy screening POSTOPERATIVE DIAGNOSIS: Tubular adenoma transverse colon Sigmoid diverticulosis Internal hemorrhoids, grade 2 OPERATION: Colonoscopy to the ileocecal valve and appendiceal orifice, cecum Colonoscopy with hot snare polypectomy SURGEON: Felicitas Horn MD. ANESTHESIA: MAC. INDICATIONS: The patient is an 70-year-old male who presents for his first colonoscopy screening. Benefits and risks were described and informed consent was obtained. DESCRIPTION OF PROCEDURE: The patient had undergone Sutab prep. The patient had been brought into the operating room and laid in the left lateral decubitus position. After adequate intravenous sedation, the rectum was examined with 2% lidocaine jelly. The prostate was unremarkable. External hemorrhoids were encountered. The rectal tone was within normal limits. No lesions were palpated in the rectal vault. An Olympus colonoscope was advanced until the cecum, ileocecal valve and appendiceal orifice were clearly viewed. The prep was excellent. Sigmoid diverticulosis was encountered. Colonic polyps were found and removed. No evidence of focal colitis was found. Retroflexion of the scope demonstrated grade 2 internal hemorrhoids without active bleeding or inflammation. The colon was desufflated. The patient had tolerated the procedure well. Withdrawal time was over 6 minutes. FINDINGS: Aronchick preparation quality scale 1 (1-5) Internal hemorrhoids, grade 2 External hemorrhoids, grade 2. No arteriovenous malformations. Sigmoid diverticulosis Removal of 1 polyps: - Snare polypectomy at proximal transverse colon, 5 mm tubulovillous adenoma polyp. No focal colitis. RECOMMENDATIONS: repeat colonoscopy in 2024 Plan - Discharge Summary Discharge Rx Participant: No New Discharge Prescriptions: Continue amLODIPine BESYLATE [Norvasc] 10 mg PO HS Atorvastatin [Lipitor] 40 mg PO HS Discharge Medication List amLODIPine BESYLATE [Norvasc] 10 mg PO HS 08/19/18 [History] Atorvastatin [Lipitor] 40 mg PO HS 06/21/21 [History] Follow up Appointment(s)/Referral(s): Felicitas Horn MD [STAFF PHYSICIAN] - 07/12/21 Patient Instructions/Handouts: GERD (Gastroesophageal Reflux Disease) (ED), Colorectal Polyps (GEN) Activity/Diet/Wound Care/Special Instructions: Repeat colonoscopy years2024 Discharge Disposition: HOME SELF-CARE
[2021-06-23 08:57] VITALS: BP 135/79; PULSE 92
== END 2021-06-23 09:32 | disposition home or self-care (01) ==
LOC: ORWHC2ENDO 06:50
PROVIDERS: ATTEND Surgery Plastic and Reconstructive Surgery
DX: Z12.11 Encounter for screening for malignant neoplasm of colon (principal); K29.50 Unspecified chronic gastritis without bleeding; K21.9 Gastro-esophageal reflux disease without esophagitis; K22.10 Ulcer of esophagus without bleeding; K57.30 Diverticulosis of large intestine without perforation or abscess without bleeding; K64.1 Second degree hemorrhoids; K63.5 Polyp of colon; E78.5 Hyperlipidemia, unspecified; I10 Essential (primary) hypertension; Z87.442 Personal history of urinary calculi; Z98.890 Other specified postprocedural states; Z79.899 Other long term (current) drug therapy
CPT/HCPCS: 88305; 45385; 43239; J2704; J2001

== ENCOUNTER → 2021-06-24 | Outpatient (CLI) | payer MEDICARE ==
--- NOTE | 2021-06-24 12:09 | XR ---
KUB HISTORY: Calculus of ureter Frontal KUB submitted and correlated to prior exam 05/25/2021, CT 05/06/2021 Calcifications suspected within the right and possibly left kidneys that are punctate. Probable phleb oliths are present within the pelvis, multiple calcifications are present. Degenerative disc disease present within the visualized spine. Osteoarthritic change present within the hips. IMPRESSION: Nephrolithiasis.
== END | disposition home or self-care (01) ==
LOC: RADXRMAIN 09:34
PROVIDERS: ATTEND Urology
DX: N20.0 Calculus of kidney (principal)
CPT/HCPCS: 74018

== ENCOUNTER → 2021-07-07 | Outpatient (CLI) | payer MEDICARE ==
[2021-07-07 17:48] LABS: Basophils # (A) 0.04 X 10*3/uL (0.00-0.10); Basophils % (A) 0.5 %; Eosinophils # (A) 0.24 X 10*3/uL (0.04-0.35); Eosinophils % (A) 3.1 %; Immature Grans, Automated 0.3 %; Lymphocytes # (A) 2.41 X 10*3/uL (0.90-5.00); Lymphocytes % (A) 31.4 %; MCH 30.9 pg (27.0-32.0); MCHC 33.3 g/dL (32.0-37.0); MCV 92.7 fL (80.0-97.0); Mean Platelet Volume 10.3 fL (9.5-12.2); Monocytes # (A) 0.78 X 10*3/uL (0.20-1.00); Monocytes % (A) 10.2 %; NRBC Per 100 WBC 0 /100 WBCS (0.0-0.0); Neutrophils # (A) 4.18 X 10*3/uL (1.80-7.70); Neutrophils % (A) 54.5 %; Platelet Count 202 X 10*3/uL (140-440); RBC 4.53 X 10*6/uL (4.40-5.60); RDW 13.5 % (11.5-14.5); WBC 7.67 X 10*3/uL (4.50-10.00)
[2021-07-07 17:55] LABS: African American GFR (CKD) 96.2 (60.0-200.0); Anion Gap 11.1 mmol/L (10.00-18.00); BUN/Creat Ratio 21.31 Ratio (12.00-20.00); Blood Urea Nitrogen 19.9 mg/dL (9.0-27.0); Calcium 9.3 mg/dL (8.7-10.3); Carbon Dioxide 25.9 mmol/L (20.0-27.5); Potassium 3.9 mmol/L (3.5-5.5)
== END | disposition home or self-care (01) ==
LOC: LABPAT 10:14
PROVIDERS: ATTEND Urology
DX: Z01.812 Encounter for preprocedural laboratory examination (principal); N20.1 Calculus of ureter
CPT/HCPCS: 80048; 85025

== ENCOUNTER 2021-08-10 08:36 | Day surgery (SDC) | payer MEDICARE ==
[2021-08-08 15:41] VITALS: BMI 26.4
--- NOTE | 2021-08-10 06:35 | P.GSHP ---
History of Present Illness H&P Date: 08/10/21 CHIEF COMPLAINT: GERD HISTORY OF PRESENT ILLNESS: The patient is a 70-year-old male who presents reports gastroesophageal reflux disease. Upper endoscopy was offered for further evaluation and management. PAST MEDICAL HISTORY: Please see list. PAST SURGICAL HISTORY: Please see list. MEDICATIONS: Please see list. ALLERGIES: Please see list. SOCIAL HISTORY: No illicit drug use FAMILY HISTORY: No reports of Crohn disease or ulcerative colitis. REVIEW OF ORGAN SYSTEMS: CONSTITUTIONAL: No reports of fevers or chills. GI: Denies any blood in stools or constipation. PHYSICAL EXAM: VITAL SIGNS: Stable GENERAL: Well-developed and pleasant in no acute distress. HEENT: No scleral icterus. Extraocular movements grossly intact. Moist buccal mucosa. NECK: Supple without lymphadenopathy. CHEST: Unlabored respirations. Equal bilateral excursions. CARDIOVASCULAR: Regular rate and rhythm. Distal 2+ pulses. ABDOMEN: Soft, nondistended. MUSCULOSKELETAL: No clubbing, cyanosis, or edema. ASSESSMENT: 1. Gastroesophageal reflux disease PLAN: 1. Recommend proceeding with an upper endoscopy Past Medical History Past Medical History: Hypertension Additional Past Medical History / Comment(s): kidney stones History of Any Multi-Drug Resistant Organisms: None Reported Past Surgical History: Orthopedic Surgery Additional Past Surgical History / Comment(s): lithotripsy Past Anesthesia/Blood Transfusion Reactions: No Reported Reaction Smoking Status: Never smoker - Past Family History Mother Family Medical History: No Reported History Medications and Allergies Home Medications Medication Instructions Recorded Confirmed Type amLODIPine BESYLATE [Norvasc] 10 mg PO HS 08/19/18 08/08/21 History Atorvastatin [Lipitor] 40 mg PO HS 06/21/21 08/08/21 History Allergies Allergy/AdvReac Type Severity Reaction Status Date / Time No Known Allergies Allergy Verified 08/08/21 15:35
[2021-08-10] MEDS ORDERED: LIDOCAINE 1% (10MG/ML) FOR IV START INTRADERMA PRN (08:46)
[2021-08-10] MEDS ORDERED: LACTATED RINGERS 1,000 ML IV SCH (08:46)
[2021-08-10 09:01] VITALS: TEMP 98.6
[2021-08-10] MEDS ORDERED: PROPOFOL 10 MG/ML 20 ML VIAL IV ONE (09:41)
[2021-08-10] MEDS ORDERED: LIDOCAINE 2% INJ 20 MG/ML (2 ML VIAL) ONE (09:41)
--- NOTE | 2021-08-10 10:00 | P.PCN ---
Date of Procedure: 08/10/21 Description of Procedure: PREOPERATIVE DIAGNOSIS: Dysphagia. POSTOPERATIVE DIAGNOSIS: Dysphagia. Esophageal stricture, upper esophagus Esophageal dysmotility OPERATION: Esophagogastroduodenoscopy with rigid dilator over the guidewire 57 Fr. SURGEON: Felicitas Horn MD ANESTHESIA: MAC. INDICATIONS: The patient is a 70-year-old male who presents with a history of dysphagia. Benefits and risks of the procedure were described. Informed consent was obtained. DESCRIPTION: The patient was brought into the endoscopy suite and laid in the left lateral decubitus position. After a timeout was confirmed, the procedure was initiated. An Olympus gastroscope was passed and the stomach was entered. Mild gastritis was identified. The scope was advanced to the duodenum which was unremarkable. Retroflexion the scope confirmed a Hill grade 2 lower esophageal valve. Next using an Cameroonian rigid dilator, a guidewire was placed through the pediatric gastroscope. Next the scope was withdrawn. A 57-Tongan rigid Cam[place]onian dilator was passed carefully along the posterior oropharynx to 50 cm and left in place for 2-3 minutes stretch. The dilator was withdrawn including the guidewire. The scope was reentered along the posterior oropharynx with no findings of full-thickness tear of the upper esophageal sphincter. Next, inflammation of the antrum was identified with cold forceps biopsies obtained. No full-thickness injury was encountered. The GI tract was desufflated. The patient tolerated the procedure well. FINDINGS: Squamocolumnar junction unremarkable at 40 cm. Upper esophageal stricture without ulceration Cameroonian rigid dilator 57-Tongan completed. Hill grade 2 lower esophageal valve. LA grade A esophagitis. RECOMMENDATIONS: Upper endoscopy as needed Plan - Discharge Summary Discharge Rx Participant: No New Discharge Prescriptions: Continue amLODIPine BESYLATE [Norvasc] 10 mg PO HS Atorvastatin [Lipitor] 40 mg PO HS Discharge Medication List amLODIPine BESYLATE [Norvasc] 10 mg PO HS 08/19/18 [History] Atorvastatin [Lipitor] 40 mg PO HS 06/21/21 [History] Follow up Appointment(s)/Referral(s): Felicitas Horn MD [STAFF PHYSICIAN] - 08/16/21 Patient Instructions/Handouts: Esophageal Dilation (GEN) Activity/Diet/Wound Care/Special Instructions: Diet as tolerated. Recommend warm beverages. Discharge Disposition: HOME SELF-CARE
[2021-08-10 10:17] VITALS: BP 125/75; PULSE 83; RESP 20
== END 2021-08-10 10:44 | disposition home or self-care (01) ==
LOC: ORWHC2ENDO 08:36
PROVIDERS: ATTEND Surgery Plastic and Reconstructive Surgery
DX: K22.2 Esophageal obstruction (principal); K21.00 Gastro-esophageal reflux disease with esophagitis, without bleeding; I10 Essential (primary) hypertension; Z87.442 Personal history of urinary calculi; Z79.899 Other long term (current) drug therapy
CPT/HCPCS: 43239; 43249; J2704; J2001

== ENCOUNTER → 2021-08-26 | Outpatient (CLI) | payer MEDICARE ==
--- NOTE | 2021-08-26 12:53 | US ---
EXAMINATION TYPE: US kidneys/renal and bladder DATE OF EXAM: 08/26/2021 COMPARISON: NONE CLINICAL HISTORY: N13.2 HYDRONEPHROSIS. Hx of stones. Lithotripsy done 3 weeks ago. EXAM MEASUREMENTS: Right Kidney: 12.6 x 5.8 x 6.2 cm Left Kidney: 13.0 x 5.9 x 6.5 cm Right Kidney: Simple Cyst seen in the inferior pole measuring 7.1 x 5.8 x 6.0 cm. Hyperechoic foci se en in the inferior pole measuring 0.3 x 0.3 x 0.2cm compatible with nonobstructing renal stone Left Kidney: No hydronephrosis or masses seen Bladder: wnl Bilateral Jets seen: Yes Prostate was seen measuring 6.0 x 4.9 x 4.1 cm IMPRESSION: Simple left renal cyst. Nonobstructing renal stone inferior pole left kidney
== END | disposition home or self-care (01) ==
LOC: RADUSWWP 10:14
PROVIDERS: ATTEND Urology
DX: N28.1 Cyst of kidney, acquired (principal); N20.0 Calculus of kidney
CPT/HCPCS: 76770

== ENCOUNTER → 2021-11-28 | Outpatient (CLI) | payer MEDICARE | END | disposition home or self-care (01) | LOC: LABWHC1 13:00 | PROVIDERS: ATTEND Urology | DX: R97.20 Elevated prostate specific antigen [PSA] (principal) | CPT/HCPCS: 36415; 84153 ==

== ENCOUNTER → 2022-05-26 | Outpatient (CLI) | payer MEDICARE ==
[2022-05-26 11:12] LABS: LDL Cholesterol,Calculated 30.8 mg/dL (0.0-131.0); VLDL Calculation 17.64 mg/dL (5.00-40.00)
== END | disposition home or self-care (01) ==
LOC: LABWHC1 07:46
PROVIDERS: ATTEND Family Medicine
DX: E78.5 Hyperlipidemia, unspecified (principal)
CPT/HCPCS: 36415; 80061

== ENCOUNTER → 2022-07-10 | Outpatient (CLI) | payer MEDICARE ==
--- NOTE | 2022-07-10 10:53 | XR ---
EXAMINATION TYPE: XR KUB DATE OF EXAM: 07/10/2022 COMPARISON: 07/14/2021 HISTORY: Pain TECHNIQUE: One view abdominal series FINDINGS: The osseous structures are intact. The bowel gas pattern is nonspecific. Right kidney: There is a stable 4 mm metacarpal right renal calculus. Left kidney: There is a punctate 2 mm renal calculus. Within the pelvis there are vascular appearing calcifications. Hypertrophic and degenerative changes of the spine. IMPRESSION: 1. Stable bilateral nephrolithiasis. Previously noted ureteral calculus is not seen on today's exam..
== END | disposition home or self-care (01) ==
LOC: RADXRMAIN 10:32
PROVIDERS: ATTEND Urology
DX: N20.0 Calculus of kidney (principal); R97.20 Elevated prostate specific antigen [PSA]
CPT/HCPCS: 74018; 84153; 84154

== ENCOUNTER → 2022-08-09 | Outpatient (CLI) | payer MEDICARE ==
[2022-08-09 15:47] LABS: ALT 38 U/L (10-49); AST 31 U/L (14-35); Chol/HDL Ratio 2.19 Ratio; LDL Cholesterol,Calculated 29.8 mg/dL (0.0-131.0)
== END | disposition home or self-care (01) ==
LOC: LABWHC1 07:10
PROVIDERS: ATTEND Internal Medicine Cardiovascular Disease
DX: E78.2 Mixed hyperlipidemia (principal)
CPT/HCPCS: 36415; 80061; 84450; 84460

== ENCOUNTER → 2023-02-07 | Outpatient (CLI) | payer MEDICARE ==
--- NOTE | 2023-02-07 15:14 | XR ---
EXAMINATION TYPE: XR KUB DATE OF EXAM: 02/07/2023 COMPARISON: 07/10/2022 HISTORY: Right flank pain TECHNIQUE: One view abdominal series FINDINGS: There are calcifications in the pelvis which are vascular. There is hypertrophic arthropathy of the h ips and degenerative changes of the spine. Bowel gas pattern nonspecific with no obstruction. Chronic rib deformities are seen and there is an elevated right hemidiaphragm. Right kidney: There are two calcifications overlying the lower pole the right kidney measuring 1.5 an d 2 mm. Left kidney: There is a punctate 1 to 2 mm lower pole single left renal calculus which is stable. IMPRESSION: 1. Essentially stable bilateral renal calculi all measuring less than 5 mm.
== END | disposition home or self-care (01) ==
LOC: RADXRMAIN 14:41
PROVIDERS: ATTEND Urology
DX: N20.0 Calculus of kidney (principal)
CPT/HCPCS: 74018

== ENCOUNTER → 2023-02-27 | Outpatient (CLI) | payer MEDICARE ==
--- NOTE | 2023-03-02 13:16 | CT ---
EXAMINATION TYPE: CT abdomen pelvis wo con CT DLP: 1153 mGycm, Automated exposure control for dose reduction was used. DATE OF EXAM: 02/27/2023 9:05 AM COMPARISON: CT 05/06/2021 CLINICAL INDICATION:Male, 72 years old with history of N20.0 nephrolithiasis; right flank pain TECHNIQUE: Axial CT of the abdomen and pelvis performed without contrast, stone protocol. Coronal re formats were created on a separate workstation. Contrast used: mL of , (none if empty) Oral contrast used: without Oral Contrast (none if empty) FINDINGS: Exam is limited without contrast. LOWER CHEST: Heart is mildly enlarged with moderate coronary artery calcifications and/or stents. No pericardial effusion. Elevated right hemidiaphragm and several tiny nodules in the lung bases, stable in appearance. No acute infiltrate or pleural effusion. ABDOMEN LIVER: Multiple small hepatic hypodense lesions are not fully characterized but stable and highly lik cristian benign. GALLBLADDER AND BILE DUCTS: Gallbladder appears partially contracted without evidence of calcified st ones or biliary dilatation. PANCREAS: Unremarkable. SPLEEN: Unremarkable. ADRENAL GLANDS: Stable mild thickening of the left adrenal with small focal calcification. Right adre nal is also stable.. KIDNEYS AND URETERS: Previous right-sided hydronephrosis has resolved. Small calculus or cluster in t he lower pole of the right kidney measures up to 7 mm. Punctate calculus in the most inferior right k idney. Punctate calculus in the upper pole of the left kidney. Punctate calculus towards the lower po le left kidney. No definite ureteral stones or hydroureteronephrosis bilaterally. Relatively stable 5.9 x 4.9 cm exophytic cyst from the lower pole right kidney. PELVIS BLADDER: Mostly collapsed with a mildly thickened appearance of the wall. REPRODUCTIVE: Prostate appears enlarged measuring 5.4 cm transverse. This indents the bladder base. Radiodensities seen in the region of the upper scrotum bilaterally may be related to vasectomy. ABDOMEN & PELVIS STOMACH AND BOWEL: Stomach and small bowel are nondistended, no evidence of obstruction. Portions o f the colon are redundant. Cecum appears somewhat low-lying. Moderate stool throughout the colon, mul tiple diverticula in the descending and sigmoid regions without evidence of inflammation. Appendix is not identified with certainty, however there is no inflammatory process seen in the pericecal region . PERITONEUM/RETROPERITONEUM: No evidence of pneumoperitoneum or free fluid. VASCULATURE: Mild atherosclerotic calcifications are present throughout the abdominal aorta and its b ranches. Density in the region of the proximal left renal artery could relate to calcifications and/o r stent. No evidence of aortic aneurysm. LYMPH NODES: No gross evidence for lymphadenopathy. SOFT TISSUE/ABDOMINAL WALL: Small broad-based fat-containing hernia in the region of the umbilicus st able in appearance with again a partial protrusion of the small bowel seen but no evidence to suggest obstruction. Small fat-containing inguinal hernias. MUSCULOSKELETAL: Moderate degenerative changes of the spine and hips. Mild S-shaped scoliosis. No armani beth acute bony abnormality. IMPRESSION: 1. Small bilateral renal calculi, largest calculus or calculus cluster is in the right lower pole me asuring 7 mm. 2. No visualized ureteral stones or hydronephrosis. 3. Diverticulosis without evidence of diverticulitis. 4. Other stable, chronic and likely incidental findings as above.
== END | disposition home or self-care (01) ==
LOC: RADCTMAIN 08:53
PROVIDERS: ATTEND Family Medicine
DX: N20.0 Calculus of kidney (principal); K57.30 Diverticulosis of large intestine without perforation or abscess without bleeding
CPT/HCPCS: 74176

== ENCOUNTER → 2023-04-26 | Outpatient (CLI) | payer MEDICARE ==
[2023-04-26 11:11] LABS: Basophils # (A) 0.03 X 10*3/uL (0.00-0.10); Basophils % (A) 0.4 %; Eosinophils # (A) 0.31 X 10*3/uL (0.04-0.35); Eosinophils % (A) 4.5 %; HCT 45.3 % (39.6-50.0); HGB 15.3 g/dL (13.0-17.0); Lymphocytes # (A) 2.33 X 10*3/uL (0.90-5.00); Lymphocytes % (A) 33.5 %; MCH 30.9 pg (27.0-32.0); MCHC 33.8 g/dL (32.0-37.0); MCV 91.5 FL (80.0-97.0); Mean Platelet Volume 10.1 FL (9.5-12.2); Monocytes # (A) 0.57 X 10*3/uL (0.20-1.00); Monocytes % (A) 8.2 %; NRBC Per 100 WBC 0 X 10*3/uL (0.00-0.01); Neutrophils % (A) 53.1 %; Platelet Count 188 X 10*3/uL (140-440); RBC 4.95 X 10*6/uL (4.40-5.60); RDW 12.9 % (11.5-14.5); WBC 6.96 X 10*3/uL (4.50-10.00)
[2023-04-26 16:35] LABS: ALT 33 U/L (10-49); AST 33 U/L (14-35); Albumin 4.4 g/dL (3.8-4.9); Albumin/Globulin Ratio 1.83 Ratio (1.60-3.17); Alkaline Phosphatase 90 U/L (41-126); Blood Urea Nitrogen 19.7 mg/dL (9.0-27.0); Calcium 9.1 mg/dL (8.7-10.3); Carbon Dioxide 23.4 mmol/L (21.6-31.8); Chloride 107 mmol/L (96-109); Chol/HDL Ratio 2.24 Ratio; Globulin 2.4 g/dL (1.6-3.3); Glucose 96 mg/dL (70-110); LDL Cholesterol,Calculated 35.8 mg/dL (0.0-131.0); Potassium 4.3 mmol/L (3.5-5.5); Prostate Specific Antigen 5.83 ng/mL (0.000-6.500); Sodium 142 mmol/L (135-145); Total Bilirubin 0.7 mg/dL (0.3-1.2); Total Protein 6.8 g/dL (6.2-8.2); VLDL Calculation 15.24 mg/dL (5.00-40.00)
== END | disposition home or self-care (01) ==
LOC: LABWHC1 07:15
PROVIDERS: ATTEND Family Medicine
DX: Z00.00 Encounter for general adult medical examination without abnormal findings (principal); Z12.5 Encounter for screening for malignant neoplasm of prostate
CPT/HCPCS: 80061; 80053; 85025; 36415; G0103; 84153

== ENCOUNTER → 2023-06-27 | Outpatient (CLI) | payer MEDICARE | END | disposition home or self-care (01) | LOC: LABWHC1 09:49 | PROVIDERS: ATTEND Urology | DX: R97.20 Elevated prostate specific antigen [PSA] (principal) | CPT/HCPCS: 36415; 84153 ==

== ENCOUNTER → 2023-06-27 | Outpatient (CLI) | payer MEDICARE ==
--- NOTE | 2023-06-27 09:56 | XR ---
EXAMINATION TYPE: XR KUB DATE OF EXAM: 06/27/2023 COMPARISON: 02/07/2023 HISTORY: Renal calcification TECHNIQUE: One view abdominal series FINDINGS: The osseous structures are intact. The bowel gas pattern is nonspecific. Chronic rib deformities. Suspect a 3 mm lower pole left renal calculus.. There is a 5 mm lower pole right renal calculus. Calcifications in pelvis likely vascular. Degenerative changes spine and bilateral hip arthropathy. IMPRESSION: 1. Bilateral nephrolithiasis. Similar to prior exam.
== END | disposition home or self-care (01) ==
LOC: RADXRMAIN 09:30
PROVIDERS: ATTEND Urology
DX: N20.0 Calculus of kidney (principal)
CPT/HCPCS: 74018

== ENCOUNTER → 2024-03-20 | Outpatient (CLI) | payer MEDICARE ==
[2024-03-20 15:55] LABS: Basophils # (A) 0.04 X 10*3/uL (0.00-0.10); Basophils % (A) 0.5 %; Eosinophils # (A) 0.28 X 10*3/uL (0.04-0.35); Eosinophils % (A) 3.7 %; HCT 48.2 % (39.6-50.0); HGB 16.1 g/dL (13.0-17.0); Lymphocytes # (A) 2.05 X 10*3/uL (0.90-5.00); Lymphocytes % (A) 26.8 %; MCH 30.4 pg (27.0-32.0); MCHC 33.4 g/dL (32.0-37.0); MCV 90.9 FL (80.0-97.0); Mean Platelet Volume 10.3 FL (9.5-12.2); Monocytes % (A) 9.1 %; NRBC Per 100 WBC 0 X 10*3/uL (0.00-0.01); Neutrophils # (A) 4.56 X 10*3/uL (1.80-7.70); Neutrophils % (A) 59.5 %; Platelet Count 212 X 10*3/uL (140-440); RDW 13.1 % (11.5-14.5); WBC 7.66 X 10*3/uL (4.50-10.00)
[2024-03-20 16:31] LABS: ALT 32 U/L (10-49); AST 32 U/L (14-35); Albumin 4.6 g/dL (3.8-4.9); Albumin/Globulin Ratio 1.84 Ratio (1.60-3.17); Alkaline Phosphatase 108 U/L (41-126); Blood Urea Nitrogen 18.7 mg/dL (9.0-27.0); Calcium 9.5 mg/dL (8.7-10.3); Carbon Dioxide 25.9 mmol/L (21.6-31.8); Chloride 104 mmol/L (96-109); Chol/HDL Ratio 2.74 Ratio; Creatine Kinase 225 U/L (35-257); Globulin 2.5 g/dL (1.6-3.3); Glucose 92 mg/dL (70-110); LDL Cholesterol,Calculated 43.8 mg/dL (0.0-131.0); Prostate Specific Antigen 7.07 ng/mL (0.000-6.500); Sodium 142 mmol/L (135-145); Total Bilirubin 0.9 mg/dL (0.3-1.2); Total Protein 7.1 g/dL (6.2-8.2)
== END | disposition home or self-care (01) ==
LOC: LABWHC1 10:18
PROVIDERS: ATTEND Family Medicine
DX: I10 Essential (primary) hypertension (principal); M13.0 Polyarthritis, unspecified; E78.5 Hyperlipidemia, unspecified
CPT/HCPCS: 36415; 80053; 80061; 82306; 82550; 82607; 84153; 84443; 85025; 86038